=== PATIENT | male | born 1955 | race African-American/Black ===

== ENCOUNTER 2017-07-20 19:59 | Observation (INO) | payer OTHER ==
--- NOTE | 2017-07-20 20:06 | PDOC ---
History of Present Illness - General History Source: Patient Exam Limitations: No Limitations - General Chief Complaint: Syncope/Near Syncope Stated Complaint: FAINTED Time Seen by Provider: 07/20/17 20:00 - History of Present Illness Initial Comments: 07/20/17 20:35 The patient is a 61 year old male, with a significant past medical history of diabetes, who presents to the emergency department s/p seizure and loss of consciousness today. Patient states he was finishing up working on his car when he parked and proceeded to go inside his house. He began to feel weak , so he sat down and he passed out. His was just coming into the house herself when she noticed her on the chair slumped over sideways. She immediately ran and shook him to wake him up. She gave him some orange juice and 8oz of pound cake. A while later patient was eating rice and beans when, according to his , his eyes widened and started rolling to the back of his head, mouth opened, lips turned white and arms shaking. She states that he still seems to be a little out of it. She reports that he also experienced diaphoresis. He denies feeling cold. He denies any recent fevers, chills, headache or dizziness. He denies any recent nausea, vomit, diarrhea or constipation. He denies any recent chest pain or shortness of breath. He denies any recent dysuria, frequency, urgency or hematuria. Primary Care Physician: Juvenal Govea. (Cynthia Peck) 07/20/17 22:08 A portion of this note was documented by scribe services under my direction. I have reviewed the details of the note, within reason, and agree with the documentation. The case summary and management plan written by me. Assessment and plan: This is a 61-year-old male with history of non-insulin- dependent diabetes who was brought in by his family for syncopal event. In further talking with the family it sounds like he had a near syncopal event initially because of hypoglycemia but then had 2 glasses of orange juice some cake and a meal and shortly after the meal had another event that appears to be a seizure. Patient in the emergency room was postictal. Patient has no seizure history Patient will be admitted to an inpatient observation bed for further evaluation and workup of his questionable syncope vs seizure (Robert Pineda I) Past History - Past Medical History Diabetes: Yes - Suicide/Smoking/Psychosocial Hx Smoking History: Unknown if ever smoked Number of Cigarettes Smoked Daily: 0 Hx Alcohol Use: No Substance Use Type: None - Past Medical History Allergies/Adverse Reactions: Allergies Allergy/AdvReac Type Severity Reaction Status Date / Time No Known Allergies Allergy Unverified 11/07/12 05:36 Home Medications: Ambulatory Orders Sitagliptin Phosphate [Januvia] 50 mg PO AM #30 tablet 07/18/13 Review of Systems - Review of Systems Comments:: 07/20/17 20:36 General: +weakness, +diaphoretic. No fevers or chills, no weight loss HEENT: No change in vision. No sore throat, No ear pain Cardiovascular: No chest pain or shortness of breath Respiratory:No cough, or wheezing. Gastrointestinal: no nausea, vomiting, diarrhea or constipation, No rectal bleeding Genitourinary: No dysuria, hematuria, or frequency Musculoskeletal: No joint or muscle pain or swelling Neurologic: +loss of consciousness. No headache, vertigo, dizziness. Psychiatric: no depression Skin: No rashes or easy bruising Endocrine: no increased thirst or abnormal weight change Allergic: no skin or latex allergy All other systems reviewed and normal (Cynthia Pcek) *Physical Exam - Vital Signs Last Vital Signs Temp Pulse Resp BP Pulse Ox 97.5 F L 93 H 15 127/67 98 07/20/17 20:00 07/20/17 20:30 07/20/17 20:30 07/20/17 20:30 07/20/17 20:30 - Physical Exam Comments: 07/20/17 20:36 General: Appears postictal. Well-nourished well-developed individual.s HEENT: Throat: Normal, tonsils normal, no erythema or exudate Neck: Supple, no meningeal signs, no lymphadenopathy Eyes:Pupils equal reactive and round, extraocular motion intact Chest: Nontender to palpation Cardiac: S1-S2 normal, regular rate and rhythm, no murmurs rubs or gallops Respiratory: Lungs clear to auscultation bilateral Abdomen: Soft, nondistended, normal bowel sounds, nontender to palpation diffusely Extremities: Warm, dry, no cyanosis, clubbing, or edema Skin: No rashes Neuro: Alert and oriented x3, nonfocal exam, grossly intact, normal gait Psych: Normal mood and affect (Cynthia Peck) Heart Score/ECG Review - ECG Impressions Comment:: 07/20/17 20:31 Normal sinus rhythm with sinus arrhythmia Minimal voltage criteria for LVH, may be normal variant Vent. rate 76 bpm (Cynthia Peck) ED Treatment Course - LABORATORY CBC & Chemistry Diagram: 07/20/17 20:40 07/20/17 20:40 - ADDITIONAL ORDERS Additional order review: Laboratory Results 07/20/17 07/20/17 07/20/17 20:40 20:40 20:40 PT with INR 12.5 INR 1.12 Sodium 135 L Potassium 4.5 Chloride 98 Carbon Dioxide 29 H Anion Gap 8 BUN 17 D Creatinine 1.2 Creat Clearance w eGFR > 60 Random Glucose 200 H Calcium 10.0 Total Bilirubin 0.8 AST 28 ALT 25 Alkaline Phosphatase 54 Creatine Kinase 334 H Creatine Kinase Index 0.7 CK-MB (CK-2) 2.6 Troponin I < 0.03 L Total Protein 8.1 Albumin 4.9 Lipase 27 07/20/17 20:40 RBC 4.02 MCV 99.7 H MCHC 33.3 RDW 11.9 MPV 7.7 Neutrophils % 63.4 Lymphocytes % 29.4 D Monocytes % 6.0 Eosinophils % 0.6 D Basophils % 0.6 - RADIOLOGY Radiology Studies Ordered: Category Date Time Status HEAD CT WITHOUT CONTRAST [CT] Stat CT Scan 07/20/17 20:15 Taken CHEST X-RAY PORTABLE* [RAD] Stat Radiology 07/20/17 20:15 Taken - Medications Given in the ED: ED Medications Discontinued Medications Generic Name Dose Route Start Last Admin Trade Name Freq PRN Reason Stop Dose Admin Sodium Chloride 1,000 mls @ 1,000 mls/hr 07/20/17 20:16 07/20/17 20:40 Normal Saline - IV 07/20/17 21:15 1,000 mls/hr .Q1H ONE Administration *DC/Admit/Observation/Transfer - Discharge Dispostion Admit: Yes Diagnosis at time of Disposition: Seizure Syncope Qualifiers: Encounter type: initial encounter - Discharge Dispostion Condition at time of disposition: Good - Referrals Referrals: Juvenal Govea MD [Primary Care Provider] - - Patient Instructions - Post Discharge Activity - Attestations Scribe Attestion: 07/20/17 20:38 Documentation prepared by Cynthia Peck, acting as medical record clerk for Robert Pineda MD. (Cisco,Cynthia)
[2017-07-20] MEDS ORDERED: SODIUM CHLORIDE 1,000 ML IV ONE (20:16)
[2017-07-20 21:09] LABS: BASOPHIL 0.6 % (0-2.0); EOSINOPHIL 0.6 % (0-4.5); MCH 33.2 pg (25.7-33.7); MCHC 33.3 g/dl (32.0-35.9); MEAN CELL VOLUME 99.7 fl (80-96); MEAN PLT VOLUME 7.7 fl (7.5-11.1); NEUTROPHILS 63.4 % (42.8-82.8); PLATELET COUNT 265 K/MM3 (134-434); RDW 11.9 % (11.9-15.9)
[2017-07-20 21:20] LABS: INR 1.12 (0.82-1.09); PROTHROMBIN TIME (PATIENT) 12.5 SEC (10.2-13.0)
[2017-07-20 21:22] LABS: ALBUMIN 4.9 g/dl (3.5-5.0); ALK PHOS 54 U/L (32-92); ANION GAP 8 (8-16); BILIRUBIN,TOTAL 0.8 mg/dl (0.2-1.0); CO2 29 mmol/L (22-28); CREATININE 1.2 mg/dl (0.6-1.3); GLUCOSE,RANDOM 200 mg/dl (74-106); SGOT/AST 28 U/L (10-42); SGPT/ALT 25 U/L (10-40); TOT PROT 8.1 g/dl (6.4-8.3)
[2017-07-20 21:25] LABS: CPK 334 IU/L (39-308)
[2017-07-20 21:58] LABS: TROPONIN I (DFP) < 0.03 ng/ml (0.03-0.50)
[2017-07-20 23:49] LABS: URINE APPEARANCE Clear; URINE BILIRUBIN Negative (NEGATIVE); URINE BLOOD Negative (NEGATIVE); URINE GLUCOSE (UA) 2+ (NEGATIVE); URINE KETONE Trace (NEGATIVE); URINE LEUK ESTERASE Negative (NEGATIVE); URINE NITRITE Negative (NEGATIVE); URINE PROTEIN Negative (NEGATIVE); URINE UROBILINOGEN 0.2 (0.2-1.0)
[2017-07-20 23:50] LABS: URINE COLOR YELLOW
[2017-07-21 01:05] VITALS: BMI 22.8
--- NOTE | 2017-07-21 01:28 | HP ---
<Bonny Romero - Last Filed: 07/21/17 10:15> CHIEF COMPLAINT: PCP: HISTORY OF PRESENT ILLNESS: ER course was notable for: (1) (2) (3) Recent Travel: PAST MEDICAL HISTORY: PAST SURGICAL HISTORY: Social History: Smoking: Alcohol: Drugs: Family History: Allergies No Known Allergies Allergy (Unverified 11/07/12 05:36) HOME MEDICATIONS: Home Medications Medication Instructions Recorded Sitagliptin Phosphate [Januvia] 50 mg PO AM #30 tablet 07/18/13 REVIEW OF SYSTEMS CONSTITUTIONAL: Absent: fever, chills, diaphoresis, generalized weakness, malaise, loss of appetite, weight change HEENT: Absent: rhinorrhea, nasal congestion, throat pain, throat swelling, difficulty swallowing, mouth swelling, ear pain, eye pain, visual changes CARDIOVASCULAR: Absent: chest pain, syncope, palpitations, irregular heart rate, lightheadedness , peripheral edema RESPIRATORY: Absent: cough, shortness of breath, dyspnea with exertion, orthopnea, wheezing, stridor, hemoptysis GASTROINTESTINAL: Absent: abdominal pain, abdominal distension, nausea, vomiting, diarrhea, constipation, melena, hematochezia GENITOURINARY: Absent: dysuria, frequency, urgency, hesitancy, hematuria, flank pain, genital pain MUSCULOSKELETAL: Absent: myalgia, arthralgia, joint swelling, back pain, neck pain SKIN: Absent: rash, itching, pallor HEMATOLOGIC/IMMUNOLOGIC: Absent: easy bleeding, easy bruising, lymphadenopathy, frequent infections ENDOCRINE: Absent: unexplained weight gain, unexplained weight loss, heat intolerance, cold intolerance NEUROLOGIC: Absent: headache, focal weakness or paresthesias, dizziness, unsteady gait, seizure, mental status changes, bladder or bowel incontinence PSYCHIATRIC: Absent: anxiety, depression, suicidal or homicidal ideation, hallucinations. PHYSICAL EXAMINATION Vital Signs - 24 hr 07/20/17 07/20/17 07/21/17 20:00 20:30 00:08 Temperature 97.5 F L 98.8 F Pulse Rate 80 Pulse Rate [ 93 H 84 Apical] Respiratory 15 15 19 Rate Blood Pressure 136/78 Blood Pressure 127/67 152/73 [Right Arm] O2 Sat by Pulse 98 98 97 Oximetry (%) 07/21/17 07/21/17 07/21/17 00:59 05:04 06:42 Temperature 98.1 F 98.6 F Pulse Rate 76 77 Pulse Rate [ Apical] Respiratory 19 16 Rate Blood Pressure 135/58 126/68 Blood Pressure [Right Arm] O2 Sat by Pulse 98 Oximetry (%) GENERAL: Awake, alert, and fully oriented, in no acute distress. HEAD: Normal with no signs of trauma. EYES: Pupils equal, round and reactive to light, extraocular movements intact, sclera anicteric, conjunctiva clear. No lid lag. EARS, NOSE, THROAT: Ears normal, nares patent, oropharynx clear without exudates. Moist mucous membranes. NECK: Normal range of motion, supple without lymphadenopathy, JVD, or masses. LUNGS: Breath sounds equal, clear to auscultation bilaterally. No wheezes, and no crackles. No accessory muscle use. HEART: Regular rate and rhythm, normal S1 and S2 without murmur, rub or gallop. ABDOMEN: Soft, nontender, not distended, normoactive bowel sounds, no guarding, no rebound, no masses. No hepatomegaly or splenomegaly. MUSCULOSKELETAL: Normal range of motion at all joints. No bony deformities or tenderness. No CVA tenderness. UPPER EXTREMITIES: 2+ pulses, warm, well-perfused. No cyanosis. No clubbing. No peripheral edema. LOWER EXTREMITIES: 2+ pulses, warm, well-perfused. No calf tenderness. No peripheral edema. NEUROLOGICAL: Cranial nerves II-XII intact. Normal speech. Normal gait. PSYCHIATRIC: Cooperative. Good eye contact. Appropriate mood and affect. SKIN: Warm, dry, normal turgor, no rashes or lesions noted, normal capillary refill. Laboratory Results - last 24 hr 07/20/17 07/20/17 07/20/17 20:40 20:40 20:40 WBC 7.0 RBC 4.02 Hgb 13.3 Hct 40.1 MCV 99.7 H MCH 33.2 MCHC 33.3 RDW 11.9 Plt Count 265 MPV 7.7 Neutrophils % 63.4 Lymphocytes % 29.4 D Monocytes % 6.0 Eosinophils % 0.6 D Basophils % 0.6 PT with INR 12.5 INR 1.12 Sodium 135 L Potassium 4.5 Chloride 98 Carbon Dioxide 29 H Anion Gap 8 BUN 17 D Creatinine 1.2 Creat Clearance w eGFR > 60 POC Glucometer Random Glucose 200 H Calcium 10.0 Phosphorus Magnesium Total Bilirubin 0.8 AST 28 ALT 25 Alkaline Phosphatase 54 Creatine Kinase Creatine Kinase Index CK-MB (CK-2) Troponin I Total Protein 8.1 Albumin 4.9 Triglycerides Cholesterol Total LDL Cholesterol HDL Cholesterol Lipase 27 Urine Color Urine Appearance Urine pH Ur Specific [place] Urine Protein Urine Glucose (UA) Urine Ketones Urine Blood Urine Nitrite Urine Bilirubin Urine Urobilinogen Ur Leukocyte Esterase 07/20/17 07/20/17 07/21/17 20:40 23:30 01:55 WBC RBC Hgb Hct MCV MCH MCHC RDW Plt Count MPV Neutrophils % Lymphocytes % Monocytes % Eosinophils % Basophils % PT with INR INR Sodium Potassium Chloride Carbon Dioxide Anion Gap BUN Creatinine Creat Clearance w eGFR POC Glucometer Random Glucose Calcium Phosphorus Magnesium Total Bilirubin AST ALT Alkaline Phosphatase Creatine Kinase 334 H 264 Creatine Kinase Index 0.7 0.6 CK-MB (CK-2) 2.6 1.827 Troponin I < 0.03 L < 0.02 Total Protein Albumin Triglycerides Cholesterol Total LDL Cholesterol HDL Cholesterol Lipase Urine Color Yellow Urine Appearance Clear Urine pH 7.0 Ur Specific [place] 1.020 Urine Protein Negative Urine Glucose (UA) 2+ H Urine Ketones Trace Urine Blood Negative Urine Nitrite Negative Urine Bilirubin Negative Urine Urobilinogen 0.2 Ur Leukocyte Esterase Negative 07/21/17 07/21/17 07/21/17 06:20 07:52 07:52 WBC 5.3 RBC 3.61 L Hgb 11.9 D Hct 35.8 MCV 99.3 H MCH 32.8 MCHC 33.1 RDW 11.8 L Plt Count 231 MPV 7.5 Neutrophils % 50.9 Lymphocytes % 38.6 D Monocytes % 9.2 Eosinophils % 0.9 Basophils % 0.4 PT with INR INR Sodium 136 Potassium 4.8 Chloride 105 Carbon Dioxide 25 Anion Gap 6 L BUN 14 Creatinine 1.0 Creat Clearance w eGFR POC Glucometer 110 Random Glucose 109 H D Calcium 9.5 Phosphorus 3.9 Magnesium 1.6 L Total Bilirubin AST ALT Alkaline Phosphatase Creatine Kinase Creatine Kinase Index CK-MB (CK-2) Troponin I Total Protein Albumin Triglycerides Cholesterol Total LDL Cholesterol HDL Cholesterol Lipase Urine Color Urine Appearance Urine pH Ur Specific [place] Urine Protein Urine Glucose (UA) Urine Ketones Urine Blood Urine Nitrite Urine Bilirubin Urine Urobilinogen Ur Leukocyte Esterase 07/21/17 07/21/17 07:52 07:52 WBC RBC Hgb Hct MCV MCH MCHC RDW Plt Count MPV Neutrophils % Lymphocytes % Monocytes % Eosinophils % Basophils % PT with INR INR Sodium Potassium Chloride Carbon Dioxide Anion Gap BUN Creatinine Creat Clearance w eGFR POC Glucometer Random Glucose Calcium Phosphorus Magnesium Total Bilirubin AST ALT Alkaline Phosphatase Creatine Kinase 228 Creatine Kinase Index 0.8 CK-MB (CK-2) 1.9 Troponin I < 0.03 L Total Protein Albumin Triglycerides 108 Cholesterol 130 Total LDL Cholesterol 62 HDL Cholesterol 46 Lipase Urine Color Urine Appearance Urine pH Ur Specific [place] Urine Protein Urine Glucose (UA) Urine Ketones Urine Blood Urine Nitrite Urine Bilirubin Urine Urobilinogen Ur Leukocyte Esterase ASSESSMENT/PLAN: <eMccaMarti lindbeth - Last Filed: 07/23/17 04:41> CHIEF COMPLAINT: syncope and seizure activity PCP: Outen HISTORY OF PRESENT ILLNESS: This is a 61 year old male with a past medical history of DM and HLD presented to the ED s/p syncopal/near syncopal episode and then seizure activity today. Patient states he was finishing up working on his car when he parked and proceeded to go inside his house. He began to feel weak, so he sat down and he passed out. As per the ED note, his was just coming into the house herself when she noticed her on the chair slumped over sideways. She immediately ran and shook him to wake him up. She gave him some orange juice and 8oz of pound cake. He then ate dinner and while eating rice and beans, according to his , his eyes widened and started rolling to the back of his head, mouth opened, lips turned white and arms shaking. She states that he still seems to be a little out of it. She reports that he also experienced diaphoresis. Upon exam, pt is fully back to his baseline mental status ER course was notable for: (1) CT head unremarkable as per ED Recent Travel: [place] 06/14-07/03 PAST MEDICAL HISTORY: DM HLD? pt denies but is on simvastatin PAST SURGICAL HISTORY: pt dneies Social History: Smoking: pt denies Alcohol: pt denies Drugs: pt denies Family History: mother with DM father age 89, "old age" h/o HTN, CABG 12 siblings, no medical problems 4 children, no medical problems Allergies No Known Allergies Allergy (Unverified 11/07/12 05:36) HOME MEDICATIONS: 3 Medication Instructions Recorded Sitagliptin Phosphate [Januvia] 50 mg PO AM #30 tablet 07/18/13 REVIEW OF SYSTEMS CONSTITUTIONAL: Absent: fever, chills, diaphoresis, generalized weakness, malaise, loss of appetite, weight change HEENT: Absent: rhinorrhea, nasal congestion, throat pain, throat swelling, difficulty swallowing, mouth swelling, ear pain, eye pain, visual changes CARDIOVASCULAR: Present: syncope Absent: chest pain, palpitations, irregular heart rate, lightheadedness, peripheral edema RESPIRATORY: Absent: cough, shortness of breath, dyspnea with exertion, orthopnea, wheezing, stridor, hemoptysis GASTROINTESTINAL: Absent: abdominal pain, abdominal distension, nausea, vomiting, diarrhea, constipation, melena, hematochezia GENITOURINARY: Absent: dysuria, frequency, urgency, hesitancy, hematuria, flank pain, genital pain MUSCULOSKELETAL: Absent: myalgia, arthralgia, joint swelling, back pain, neck pain SKIN: Absent: rash, itching, pallor HEMATOLOGIC/IMMUNOLOGIC: Absent: easy bleeding, easy bruising, lymphadenopathy, frequent infections ENDOCRINE: Absent: unexplained weight gain, unexplained weight loss, heat intolerance, cold intolerance NEUROLOGIC: Present: seizure activity Absent: headache, focal weakness or paresthesias, dizziness, unsteady gait, mental status changes, bladder or bowel incontinence PSYCHIATRIC: Absent: anxiety, depression, suicidal or homicidal ideation, hallucinations. PHYSICAL EXAMINATION Vital Signs - 24 hr 3 07/20/17 07/20/17 07/21/17 07/21/17 20:00 20:30 00:08 00:59 Temperature 97.5 F L 98.8 F 98.1 F Pulse Rate 80 76 Pulse Rate [ 93 H 84 Apical] Respiratory 15 15 19 19 Rate Blood Pressure 136/78 135/58 Blood Pressure 127/67 152/73 [Right Arm] O2 Sat by Pulse 98 98 97 Oximetry (%) GENERAL: Awake, alert, and fully oriented, in no acute distress. HEAD: Normal with no signs of trauma. EYES: Pupils equal, round and reactive to light, extraocular movements intact, sclera anicteric, conjunctiva clear. No lid lag. EARS, NOSE, THROAT: Ears normal, nares patent, oropharynx clear without exudates. Moist mucous membranes. NECK: Normal range of motion, supple without lymphadenopathy, JVD, or masses. LUNGS: Breath sounds equal, clear to auscultation bilaterally. No wheezes, and no crackles. No accessory muscle use. HEART: Regular rate and rhythm, normal S1 and S2 without murmur, rub or gallop. ABDOMEN: Soft, nontender, not distended, normoactive bowel sounds, no guarding, no rebound, no masses. No hepatomegaly or splenomegaly. MUSCULOSKELETAL: Normal range of motion at all joints. No bony deformities or tenderness. No CVA tenderness. UPPER EXTREMITIES: 2+ pulses, warm, well-perfused. No cyanosis. No clubbing. No peripheral edema. LOWER EXTREMITIES: 2+ pulses, warm, well-perfused. No calf tenderness. No peripheral edema. NEUROLOGICAL: Cranial nerves II-XII intact. Normal speech. Normal gait. PSYCHIATRIC: Cooperative. Good eye contact. Appropriate mood and affect. SKIN: Warm, dry, normal turgor, no rashes or lesions noted, normal capillary refill. Laboratory Results - last 24 hr 3 07/20/17 07/20/17 07/20/17 20:40 20:40 20:40 WBC 7.0 RBC 4.02 Hgb 13.3 Hct 40.1 MCV 99.7 H MCH 33.2 MCHC 33.3 RDW 11.9 Plt Count 265 MPV 7.7 Neutrophils % 63.4 Lymphocytes % 29.4 D Monocytes % 6.0 Eosinophils % 0.6 D Basophils % 0.6 PT with INR 12.5 INR 1.12 Sodium 135 L Potassium 4.5 Chloride 98 Carbon Dioxide 29 H Anion Gap 8 BUN 17 D Creatinine 1.2 Creat Clearance w eGFR > 60 Random Glucose 200 H Calcium 10.0 Total Bilirubin 0.8 AST 28 ALT 25 Alkaline Phosphatase 54 Creatine Kinase Creatine Kinase Index CK-MB (CK-2) Troponin I Total Protein 8.1 Albumin 4.9 Lipase 27 Urine Color Urine Appearance Urine pH Ur Specific [place] Urine Protein Urine Glucose (UA) Urine Ketones Urine Blood Urine Nitrite Urine Bilirubin Urine Urobilinogen Ur Leukocyte Esterase 3 07/20/17 07/20/17 20:40 23:30 WBC RBC Hgb Hct MCV MCH MCHC RDW Plt Count MPV Neutrophils % Lymphocytes % Monocytes % Eosinophils % Basophils % PT with INR INR Sodium Potassium Chloride Carbon Dioxide Anion Gap BUN Creatinine Creat Clearance w eGFR Random Glucose Calcium Total Bilirubin AST ALT Alkaline Phosphatase Creatine Kinase 334 H Creatine Kinase Index 0.7 CK-MB (CK-2) 2.6 Troponin I < 0.03 L Total Protein Albumin Lipase Urine Color Yellow Urine Appearance Clear Urine pH 7.0 Ur Specific [place] 1.020 Urine Protein Negative Urine Glucose (UA) 2+ H Urine Ketones Trace Urine Blood Negative Urine Nitrite Negative Urine Bilirubin Negative Urine Urobilinogen 0.2 Ur Leukocyte Esterase Negative Radiology Report CT head prelim read unavailable, unremarkable as per ED ASSESSMENT/PLAN: 61yM with PMH DM, HLD presented to the ED s/p syncopal episode and seizure activity. syncope/seizure activity - CT head final read pending - neuro consult ordered - continuous cardiac monitoring, r/o arrhythmia - trend trop, r/o cardiac event DM - hold metformin - cont januvia - BGM AC/HS with novolog Sliding scale DVT PPX - chemoprophylaxis deferred as expected LOS <48h FEN - Tolerating po - BMP in am - diabetic diet as tolerated Dispo: Pt currently requires inpatient monitoring for management of his emergent condition. Visit type - Emergency Visit Emergency Visit: Yes ED Registration Date: 07/20/17 Care time: The patient presented to the Emergency Department on the above date and was hospitalized for further evaluation of their emergent condition. - New Patient This patient is new to me today: Yes Date on this admission: 07/21/17 - Critical Care Critical Care patient: No
[2017-07-21 03:13] LABS: CPK 264 IU/L (39-308); TROPONIN I < 0.02 ng/ml (0.00-0.05)
[2017-07-21 06:43] VITALS: BP 126/68; PULSE 77; TEMP 98.6
[2017-07-21] MEDS ORDERED: sitaGLIPtin PHOSPHATE 50 MG TABLET PO SCH (07:00)
[2017-07-21 08:18] LABS: BASOPHIL 0.4 % (0-2.0); EOSINOPHIL 0.9 % (0-4.5); MCH 32.8 pg (25.7-33.7); MCHC 33.1 g/dl (32.0-35.9); MEAN CELL VOLUME 99.3 fl (80-96); MEAN PLT VOLUME 7.5 fl (7.5-11.1); NEUTROPHILS 50.9 % (42.8-82.8); PLATELET COUNT 231 K/MM3 (134-434); RDW 11.8 % (11.9-15.9); WHITE BLOOD COUNT 5.3 K/mm3 (4.0-10.8)
--- NOTE | 2017-07-21 08:33 | PN ---
Physical Exam: SUBJECTIVE: Patient seen and examined at the bedside. He is awake and alert. He denies any history of syncope episode or seizures in the past. 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 He is exposed to car fumes and does not use a mask for protection. He denies drug use. OBJECTIVE: Head CT pending Utox ordered EKG shows NSR with sinus arrhythmia, hospital monitor shows same Vital Signs Period Temp Pulse Resp BP Sys/Alvarenga Pulse Ox Last 24 Hr 97.5 F-98.8 F 76-93 15-19 126-152/58-78 97-98 GENERAL: The patient is awake, alert, and fully oriented, in no acute distress. HEAD: Normal with no signs of trauma. EYES: PERRL, extraocular movements intact, sclera anicteric, conjunctiva clear. No ptosis. ENT: Ears normal, nares patent, oropharynx clear without exudates, moist mucous membranes. NECK: Trachea midline, full range of motion, supple. LUNGS: Breath sounds equal, clear to auscultation bilaterally HEART: Regular rate and rhythm ABDOMEN: Soft, nontender, nondistended, normoactive bowel sounds, no guarding EXTREMITIES: 2+ pulses, warm, well-perfused, no edema. NEUROLOGICAL: Normal speech, gait not observed. PSYCH: Normal mood, normal affect. SKIN: Warm, dry, normal turgor, no rashes or lesions noted Laboratory Results - last 24 hr 07/20/17 07/20/17 07/20/17 20:40 20:40 20:40 WBC 7.0 RBC 4.02 Hgb 13.3 Hct 40.1 MCV 99.7 H MCH 33.2 MCHC 33.3 RDW 11.9 Plt Count 265 MPV 7.7 Neutrophils % 63.4 Lymphocytes % 29.4 D Monocytes % 6.0 Eosinophils % 0.6 D Basophils % 0.6 PT with INR 12.5 INR 1.12 Sodium 135 L Potassium 4.5 Chloride 98 Carbon Dioxide 29 H Anion Gap 8 BUN 17 D Creatinine 1.2 Creat Clearance w eGFR > 60 POC Glucometer Random Glucose 200 H Calcium 10.0 Total Bilirubin 0.8 AST 28 ALT 25 Alkaline Phosphatase 54 Creatine Kinase Creatine Kinase Index CK-MB (CK-2) Troponin I Total Protein 8.1 Albumin 4.9 Lipase 27 Urine Color Urine Appearance Urine pH Ur Specific [place] Urine Protein Urine Glucose (UA) Urine Ketones Urine Blood Urine Nitrite Urine Bilirubin Urine Urobilinogen Ur Leukocyte Esterase 07/20/17 07/20/17 07/21/17 20:40 23:30 01:55 WBC RBC Hgb Hct MCV MCH MCHC RDW Plt Count MPV Neutrophils % Lymphocytes % Monocytes % Eosinophils % Basophils % PT with INR INR Sodium Potassium Chloride Carbon Dioxide Anion Gap BUN Creatinine Creat Clearance w eGFR POC Glucometer Random Glucose Calcium Total Bilirubin AST ALT Alkaline Phosphatase Creatine Kinase 334 H 264 Creatine Kinase Index 0.7 0.6 CK-MB (CK-2) 2.6 1.827 Troponin I < 0.03 L < 0.02 Total Protein Albumin Lipase Urine Color Yellow Urine Appearance Clear Urine pH 7.0 Ur Specific [place] 1.020 Urine Protein Negative Urine Glucose (UA) 2+ H Urine Ketones Trace Urine Blood Negative Urine Nitrite Negative Urine Bilirubin Negative Urine Urobilinogen 0.2 Ur Leukocyte Esterase Negative 07/21/17 06:20 WBC RBC Hgb Hct MCV MCH MCHC RDW Plt Count MPV Neutrophils % Lymphocytes % Monocytes % Eosinophils % Basophils % PT with INR INR Sodium Potassium Chloride Carbon Dioxide Anion Gap BUN Creatinine Creat Clearance w eGFR POC Glucometer 110 Random Glucose Calcium Total Bilirubin AST ALT Alkaline Phosphatase Creatine Kinase Creatine Kinase Index CK-MB (CK-2) Troponin I Total Protein Albumin Lipase Urine Color Urine Appearance Urine pH Ur Specific [place] Urine Protein Urine Glucose (UA) Urine Ketones Urine Blood Urine Nitrite Urine Bilirubin Urine Urobilinogen Ur Leukocyte Esterase Active Medications Generic Name Dose Route Start Last Admin Trade Name Freq PRN Reason Stop Dose Admin Non-Formulary Medication 10 mg 07/21/17 10:00 Simvastatin [Simvastatin] PO DAILY SHARI Sitagliptin Phosphate 50 mg 07/21/17 07:00 07/21/17 06:31 Januvia - PO 50 mg AM SHARI Administration ASSESSMENT/PLAN: Patient is a 61 year old male with a significant past medical history of diabetes mellitus and hyperlipidemia. He presented to the ED on 07/20/2017 s/p possible seizure and possible syncopal episode. Patient states that he is an auto radio mechanic and frequently works on cars from his garage. He states that he often inhales toxic car fumes. Patient states that he was working on his car when he went inside his home and began to feel dizzy and weak. He sat down and passed out. His shook him, woke him up and gave him orange juice and food for presumed hypoglycemia episode. Later that day, patient again was eating and his noticed that he was slumped over in the chair. According to the ED notes, during the second episode, patient's widened and his eyes rolled back, mouth open, lips turned pale, became diaphoretic and his arms began to shake. On exam, patient denied family history of seizures. He denies any recent fever , infection, denies chills, headache, nausea or vomiting. He denies any recent chest pain or shortness of breath. He denies any recent dysuria, frequency, urgency or hematuria. Neurology: Possible Syncopal Episode vs. New onset seizure Patient denies family history of seizure, denies any other similar episodes Denies ETOH or drug use Utox ordered to r/o other causes Head CT pending official read He has frequent exposures to exhaust fumes, car fumes from his garage Neuro consult EEG as per neuro Monitor mental status Seizure precautions Endocrine: Diabetes mellitus, chronic On Januvia, Novolog F.E.N. Fluids: tolerating PO Electrolytes: Hypomagensium 1.6, repleted Nutrition: diabetic diet Prophylaxis: DVT: ambulation GI: deferred Disposition: Full code. Visit type - Emergency Visit Emergency Visit: Yes ED Registration Date: 07/20/17 Care time: The patient presented to the Emergency Department on the above date and was hospitalized for further evaluation of their emergent condition. - New Patient This patient is new to me today: Yes Date on this admission: 07/21/17 - Critical Care Critical Care patient: No - Discharge Referral Referred to [facility] Med P.C.: No
[2017-07-21 09:00] LABS: ANION GAP 6 (8-16); CALCIUM 9.5 mg/dl (8.4-10.2); CO2 25 mmol/L (22-28); GLUCOSE,RANDOM 109 mg/dl (74-106); MAGNESIUM 1.6 mg/dL (1.8-2.4); PHOSPHOROUS 3.9 mg/dl (2.5-4.6)
[2017-07-21 09:01] LABS: CPK 228 IU/L (39-308)
[2017-07-21 09:30] LABS: TROPONIN I (DFP) < 0.03 ng/ml (0.03-0.50)
[2017-07-21 09:39] LABS: CHOLESTEROL 130 mg/dl
[2017-07-21] MEDS ORDERED: PATIENT'S OWN MEDICATION (NON-FORMULARY) (Simvastatin [Simvastatin] 10 MG) PO SCH (10:00)
[2017-07-21] MEDS ORDERED: MAGNESIUM SULF 50% (8.12 MEQ/2 ML-1 GM VIAL) IVPB ONE (10:09)
[2017-07-21 12:53] LABS: URINE MARIJUANA THC NEGATIVE ng/ml (CUTOFF=50)
--- NOTE | 2017-07-21 12:54 | CONSULT ---
Consult - text type - Consultation Consultation Note: Neurology History of Present Illness The patient is a 61 year old male, with a significant past medical history of diabetes, who presented to the emergency department s/p loss of consciousness with possible convulsive activity. Patient stated he was finishing up working on his car when he parked and proceeded to go inside his house. He began to feel weak , so he sat down and he passed out. His was just coming into the house herself when she noticed her on the chair slumped over sideways. She immediately ran and shook him to wake him up. She gave him some orange juice and 8oz of pound cake. Some time later, he was eating rice and beans when , according to his , his eyes widened and started rolling to the back of his head, mouth opened, lips turned white and arms shaking. He was brought to the hospital and admitted. CT head completed, awaiting official report but does not appear to have acute changes. Chronic microvascular white matter changes noted. The patient is at baseline and interactive. at bedside and discussed further management. EEG not available during the weekend and can be completed in the office. Advised them to make follow up appt with my office to complete work up and they were in agreement. Has not had prior events like this and has been stable overnight. Would not start AED medication for first time event, possibly hypoglycemic vs convulsize syncope. Would not categorize as epileptic by definition for first time event. Past History - Past Medical History Diabetes: Yes - Suicide/Smoking/Psychosocial Hx Smoking History: Unknown if ever smoked Number of Cigarettes Smoked Daily: 0 Hx Alcohol Use: No Substance Use Type: None - Past Medical History Allergies/Adverse Reactions: Allergies Allergy/AdvReac Type Severity Reaction Status Date / Time No Known Allergies Allergy Unverified 11/07/12 05:36 Home Medications: Ambulatory Orders Sitagliptin Phosphate [Januvia] 50 mg PO AM #30 tablet 07/18/13 Review of Systems General: +weakness, +diaphoretic. No fevers or chills, no weight loss HEENT: No change in vision. No sore throat, No ear pain Cardiovascular: No chest pain or shortness of breath Respiratory:No cough, or wheezing. Gastrointestinal: no nausea, vomiting, diarrhea or constipation, No rectal bleeding Genitourinary: No dysuria, hematuria, or frequency Musculoskeletal: No joint or muscle pain or swelling Neurologic: +loss of consciousness. No headache, vertigo, dizziness. Psychiatric: no depression Skin: No rashes or easy bruising Endocrine: no increased thirst or abnormal weight change Allergic: no skin or latex allergy All other systems reviewed and normal *Physical Exam Vital Signs Temperature 98.6 F 07/21/17 05:04 Pulse Rate 77 07/21/17 05:04 Respiratory Rate 16 07/21/17 05:04 Blood Pressure 126/68 07/21/17 05:04 O2 Sat by Pulse Oximetry (%) 98 07/21/17 06:42 General: Appears postictal. Well-nourished well-developed individual.s HEENT: Throat: Normal, tonsils normal, no erythema or exudate Neck: Supple, no meningeal signs, no lymphadenopathy Eyes:Pupils equal reactive and round, extraocular motion intact Chest: Nontender to palpation Cardiac: S1-S2 normal, regular rate and rhythm, no murmurs rubs or gallops Respiratory: Lungs clear to auscultation bilateral Abdomen: Soft, nondistended, normal bowel sounds, nontender to palpation diffusely Extremities: Warm, dry, no cyanosis, clubbing, or edema Skin: No rashes Neuro: Alert and oriented x3, nonfocal exam, grossly intact, normal gait Psych: Normal mood and affect Heart Score/ECG Review Normal sinus rhythm with sinus arrhythmia Minimal voltage criteria for LVH, may be normal variant Vent. rate 76 bpm Laboratory Results 07/20/17 07/20/17 07/20/17 20:40 20:40 20:40 PT with INR 12.5 INR 1.12 Sodium 135 L Potassium 4.5 Chloride 98 Carbon Dioxide 29 H Anion Gap 8 BUN 17 D Creatinine 1.2 Creat Clearance w eGFR > 60 Random Glucose 200 H Calcium 10.0 Total Bilirubin 0.8 AST 28 ALT 25 Alkaline Phosphatase 54 Creatine Kinase 334 H Creatine Kinase Index 0.7 CK-MB (CK-2) 2.6 Troponin I < 0.03 L Total Protein 8.1 Albumin 4.9 Lipase 27 07/20/17 20:40 RBC 4.02 MCV 99.7 H MCHC 33.3 RDW 11.9 MPV 7.7 Neutrophils % 63.4 Lymphocytes % 29.4 D Monocytes % 6.0 Eosinophils % 0.6 D Basophils % 0.6 - RADIOLOGY CT head reviewed PLan 61 year old male, with a significant past medical history of diabetes, who presented to the emergency department s/p loss of consciousness with possible convulsive activity. Patient stated he was finishing up working on his car when he parked and proceeded to go inside his house. He began to feel weak , so he sat down and he passed out. His was just coming into the house herself when she noticed her on the chair slumped over sideways. She immediately ran and shook him to wake him up. She gave him some orange juice and 8oz of pound cake. Some time later, he was eating rice and beans when, according to his , his eyes widened and started rolling to the back of his head, mouth opened, lips turned white and arms shaking. He was brought to the hospital and admitted. CT head completed, awaiting official report but does not appear to have acute changes. Please follow up official read Patient is at baseline and interactive. EEG not available during the weekend and can be completed in the office. Advised them to make follow up appt with my office to complete work up and they were in agreement. Has not had prior events like this and has been stable overnight. Would not start AED medication for first time event, possibly hypoglycemic vs convulsize syncope. Would not categorize as epileptic by definition for first time event. Planned to have glucometer on discharge, spoke to hospitalist Monitor glucose closely Avoid hypo or hyperglycemic episodes Conitnue IV/PO hydration Neurologically stable and at baseline Patient would like discharge and will follow up outpatient for EEG
--- NOTE | 2017-07-21 13:03 | DS ---
Physical Exam: SUBJECTIVE: Patient seen and examined Patient seen and examined at the bedside. He is awake and alert. He denies any history of syncope episode or seizures in the past. 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 He is exposed to car fumes and does not use a mask for protection. He denies drug use. OBJECTIVE: Cleared by neurology for discharge. Vital Signs Period Temp Pulse Resp BP Sys/Alvarenga Pulse Ox Last 24 Hr 97.5 F-98.8 F 76-93 15-19 126-152/58-78 97-98 PHYSICAL EXAM GENERAL: The patient is awake, alert, and fully oriented, in no acute distress. HEAD: Normal with no signs of trauma. EYES: PERRL, extraocular movements intact, sclera anicteric, conjunctiva clear. No ptosis. ENT: Ears normal, nares patent, oropharynx clear without exudates, moist mucous membranes. NECK: Trachea midline, full range of motion, supple. LUNGS: Breath sounds equal, clear to auscultation bilaterally HEART: Regular rate and rhythm ABDOMEN: Soft, nontender, nondistended, normoactive bowel sounds, no guarding EXTREMITIES: 2+ pulses, warm, well-perfused, no edema. NEUROLOGICAL: Normal speech, gait not observed. PSYCH: Normal mood, normal affect. SKIN: Warm, dry, normal turgor, no rashes or lesions noted LABS Laboratory Results - last 24 hr 07/20/17 07/20/17 07/20/17 20:40 20:40 20:40 WBC 7.0 RBC 4.02 Hgb 13.3 Hct 40.1 MCV 99.7 H MCH 33.2 MCHC 33.3 RDW 11.9 Plt Count 265 MPV 7.7 Neutrophils % 63.4 Lymphocytes % 29.4 D Monocytes % 6.0 Eosinophils % 0.6 D Basophils % 0.6 PT with INR 12.5 INR 1.12 Sodium 135 L Potassium 4.5 Chloride 98 Carbon Dioxide 29 H Anion Gap 8 BUN 17 D Creatinine 1.2 Creat Clearance w eGFR > 60 POC Glucometer Random Glucose 200 H Calcium 10.0 Phosphorus Magnesium Total Bilirubin 0.8 AST 28 ALT 25 Alkaline Phosphatase 54 Creatine Kinase Creatine Kinase Index CK-MB (CK-2) Troponin I Total Protein 8.1 Albumin 4.9 Triglycerides Cholesterol Total LDL Cholesterol HDL Cholesterol Lipase 27 Urine Color Urine Appearance Urine pH Ur Specific [place] Urine Protein Urine Glucose (UA) Urine Ketones Urine Blood Urine Nitrite Urine Bilirubin Urine Urobilinogen Ur Leukocyte Esterase Opiates Screen Methadone Screen Barbiturate Screen Phencyclidine Screen Ur Amphetamines Screen MDMA (Ecstasy) Screen Benzodiazepines Screen Cocaine Screen U Marijuana (THC) Screen 07/20/17 07/20/17 07/21/17 20:40 23:30 01:55 WBC RBC Hgb Hct MCV MCH MCHC RDW Plt Count MPV Neutrophils % Lymphocytes % Monocytes % Eosinophils % Basophils % PT with INR INR Sodium Potassium Chloride Carbon Dioxide Anion Gap BUN Creatinine Creat Clearance w eGFR POC Glucometer Random Glucose Calcium Phosphorus Magnesium Total Bilirubin AST ALT Alkaline Phosphatase Creatine Kinase 334 H 264 Creatine Kinase Index 0.7 0.6 CK-MB (CK-2) 2.6 1.827 Troponin I < 0.03 L < 0.02 Total Protein Albumin Triglycerides Cholesterol Total LDL Cholesterol HDL Cholesterol Lipase Urine Color Yellow Urine Appearance Clear Urine pH 7.0 Ur Specific [place] 1.020 Urine Protein Negative Urine Glucose (UA) 2+ H Urine Ketones Trace Urine Blood Negative Urine Nitrite Negative Urine Bilirubin Negative Urine Urobilinogen 0.2 Ur Leukocyte Esterase Negative Opiates Screen Methadone Screen Barbiturate Screen Phencyclidine Screen Ur Amphetamines Screen MDMA (Ecstasy) Screen Benzodiazepines Screen Cocaine Screen U Marijuana (THC) Screen 07/21/17 07/21/17 07/21/17 06:20 07:52 07:52 WBC 5.3 RBC 3.61 L Hgb 11.9 D Hct 35.8 MCV 99.3 H MCH 32.8 MCHC 33.1 RDW 11.8 L Plt Count 231 MPV 7.5 Neutrophils % 50.9 Lymphocytes % 38.6 D Monocytes % 9.2 Eosinophils % 0.9 Basophils % 0.4 PT with INR INR Sodium 136 Potassium 4.8 Chloride 105 Carbon Dioxide 25 Anion Gap 6 L BUN 14 Creatinine 1.0 Creat Clearance w eGFR POC Glucometer 110 Random Glucose 109 H D Calcium 9.5 Phosphorus 3.9 Magnesium 1.6 L Total Bilirubin AST ALT Alkaline Phosphatase Creatine Kinase Creatine Kinase Index CK-MB (CK-2) Troponin I Total Protein Albumin Triglycerides Cholesterol Total LDL Cholesterol HDL Cholesterol Lipase Urine Color Urine Appearance Urine pH Ur Specific [place] Urine Protein Urine Glucose (UA) Urine Ketones Urine Blood Urine Nitrite Urine Bilirubin Urine Urobilinogen Ur Leukocyte Esterase Opiates Screen Methadone Screen Barbiturate Screen Phencyclidine Screen Ur Amphetamines Screen MDMA (Ecstasy) Screen Benzodiazepines Screen Cocaine Screen U Marijuana (THC) Screen 07/21/17 07/21/17 07/21/17 07:52 07:52 11:30 WBC RBC Hgb Hct MCV MCH MCHC RDW Plt Count MPV Neutrophils % Lymphocytes % Monocytes % Eosinophils % Basophils % PT with INR INR Sodium Potassium Chloride Carbon Dioxide Anion Gap BUN Creatinine Creat Clearance w eGFR POC Glucometer Random Glucose Calcium Phosphorus Magnesium Total Bilirubin AST ALT Alkaline Phosphatase Creatine Kinase 228 Creatine Kinase Index 0.8 CK-MB (CK-2) 1.9 Troponin I < 0.03 L Total Protein Albumin Triglycerides 108 Cholesterol 130 Total LDL Cholesterol 62 HDL Cholesterol 46 Lipase Urine Color Urine Appearance Urine pH Ur Specific [place] Urine Protein Urine Glucose (UA) Urine Ketones Urine Blood Urine Nitrite Urine Bilirubin Urine Urobilinogen Ur Leukocyte Esterase Opiates Screen Negative Methadone Screen Negative Barbiturate Screen Negative Phencyclidine Screen Negative Ur Amphetamines Screen Negative MDMA (Ecstasy) Screen Negative Benzodiazepines Screen Negative Cocaine Screen Negative U Marijuana (THC) Screen Negative HOSPITAL COURSE: Date of Admission:07/20/17 Date of Discharge: 07/21/17 ASSESSMENT/PLAN: Patient is a 61 year old male with a significant past medical history of diabetes mellitus and hyperlipidemia. He presented to the ED on 07/20/2017 s/p possible seizure and possible syncopal episode. 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 He states that he often inhales toxic car fumes. Patient states that he was working on his car when he went inside his home and began to feel dizzy and weak. He sat down and passed out. His shook him, woke him up and gave him orange juice and food for presumed hypoglycemia episode. Later that day, patient again was eating and his noticed that he was slumped over in the chair. According to the ED notes, during the second episode, patient's widened and his eyes rolled back, mouth open, lips turned pale, became diaphoretic and his arms began to shake. On exam, patient denied family history of seizures. He denies any recent fever , infection, denies chills, headache, nausea or vomiting. He denies any recent chest pain or shortness of breath. He denies any recent dysuria, frequency, urgency or hematuria. Neurology: Possible Syncopal Episode vs. New onset seizure Patient denies family history of seizure, denies any other similar episodes Denies ETOH or drug use Utox negative Head CT pending official read but as per neuro, no acute pathology He has frequent exposures to exhaust fumes, car fumes from his garage EEG as an outpatient mental status at baseline since admission Endocrine: Diabetes mellitus, chronic On Januvia, Metformin at home Patient and advised to keep log of blood sugars for 1 week and bring log to PCP and Dr. Mancini Glucometer device, lancets and needles called in to pharmacy Disposition: Cleared by neuro for d/c. Outpatient workup to continue. full code. Minutes to complete discharge: 60 Discharge Summary Reason For Visit: SYNCOPE/SEIZURE Current Active Problems Seizure (Acute) Syncope (Acute) Condition: Improved - Instructions Diet, Activity, Other Instructions: Mr. Lund: Please follow up with Dr. Mancini (Neurologis) within 1 week after discharge follow up appt and to complete workup. A glucometer has been called into your pharmacy with lancets, test strips and alcohol pads. Please check your blood sugar before meals and record the number so that you can present this log to your primary care physician and Dr. Mancini. It is important that you stay well hydrated. Avoid toxic car fumes Please have your blood work repeated with your PCP and make sure to include a magnesium level. [facility] @ [facility] [phone] Referrals: Juvenal Govae MD [Primary Care Provider] - Disposition: HOME - Home Medications Comprehensive Discharge Medication List: Ambulatory Orders Sitagliptin Phosphate [Januvia] 50 mg PO AM #30 tablet 07/18/13 Alcohol Antiseptic Pads [Caretouch Alcohol Prep Pad] 1 each TP ACHS #1 box 07/21 Lancets [Lancets Ultra Thin] 1 each MC ACHS #1 box 07/21/17 Miscellaneous Medical Supply [Glucometer Device] 1 each SQ ASDIR #1 kit Miscellaneous Medical Supply [Glucometer Test Strips #100] 1 each SQ ASDIR #1 box 07/21/17 This patient is new to me today: Yes Date on this admission: 07/21/17 Emergency Visit: Yes ED Registration Date: 07/20/17 Care time: The patient presented to the Emergency Department on the above date and was hospitalized for further evaluation of their emergent condition. Critical Care patient: No - Discharge Referral Referred to [facility] Med P.C.: No
--- NOTE | 2017-07-22 17:49 | EKG ---
Test Reason : Blood Pressure : / mmHG Vent. Rate : 076 BPM Atrial Rate : 076 BPM P-R Int : 146 ms QRS Dur : 102 ms QT Int : 366 ms P-R-T Axes : 062 053 054 degrees QTc Int : 411 ms SINUS RHYTHM WITH SINUS ARRHYTHMIA MINIMAL VOLTAGE CRITERIA FOR LVH, MAY BE NORMAL VARIANT BORDERLINE ECG NO PREVIOUS ECGS AVAILABLE Confirmed by LEXX STALEY MD ([id number]) on 07/22/2017 5:48:39 PM Referred By: Cee CORREIA Confirmed By:LEXX STALEY MD
== END 2017-07-21 13:46 | disposition home or self-care (01) ==
LOC: FER 19:59 → FM/S 23:45
PROVIDERS: ADMIT Internal Medicine; ATTEND Nurse Practitioner Family
PROC: 3E033GC Introduction of Other Therapeutic Substance into Peripheral Vein, Percutaneous Approach (ICD-10-PCS; principal; 2017-07-20)
PROC: 3E0337Z Introduction of Electrolytic and Water Balance Substance into Peripheral Vein, Percutaneous Approach (ICD-10-PCS; 2017-07-20)
DX: R56.9 Unspecified convulsions (principal); R55 Syncope and collapse; E11.9 Type 2 diabetes mellitus without complications; Z79.84 Long term (current) use of oral hypoglycemic drugs
CPT/HCPCS: 36415; 70450-TC; 71010-TC; 80048; 80053; 80061; 80307; 81003; 82550; 82553; 83690; 83735; 84100; 84484; 85025; 85610; 93005; 96361; 96374; 99284-25; G0378

== ENCOUNTER 2022-06-01 09:25 | Day surgery (SDC) | payer OTHER ==
[2022-05-31 15:49] VITALS: BMI 28.5
[2022-06-01 11:57] VITALS: RESP 16; TEMP 97.8
[2022-06-01 11:59] VITALS: BP 133/60; PULSE 74
== END 2022-06-01 11:45 | disposition home or self-care (01) ==
LOC: FASU-ENDO 09:25
PROVIDERS: ATTEND Internal Medicine Gastroenterology
PROC: 0DJD8ZZ Inspection of Lower Intestinal Tract, Via Natural or Artificial Opening Endoscopic (ICD-10-PCS; principal; 2022-06-01 10:40)
DX: Z12.11 Encounter for screening for malignant neoplasm of colon (principal)
CPT/HCPCS: 82962